=== PATIENT | female | born 1955 | race Caucasian/White ===

== ENCOUNTER 2021-04-18 11:34 | Emergency (ER) | payer MEDICARE, OTHER ==
[~2021-04-18] VITALS: Ht 160 cm; Wt 50.8 kg
[2021-04-18] MEDS ORDERED: ZYRTEC10 M3 (11:51)
[2021-04-18] MEDS ORDERED: ESCITALOPRAM OXA5 MG PO (11:51)
[2021-04-18] MEDS ORDERED: WELLBUTRIN SR100 MG PO (11:51)
[2021-04-18] MEDS ORDERED: ZOFRAN4 MG PO (13:10)
== END 2021-04-18 13:29 | disposition home or self-care (01) ==
LOC: ED 11:34 → EDBD 11:35 → ED 11:35
DX: R10.31 Right lower quadrant pain (principal); R11.2 Nausea with vomiting, unspecified
CPT/HCPCS: 80053; 81001; 83690; 85025; 99284